=== PATIENT | female | born 2000 | race Caucasian/White ===

== ENCOUNTER → 2021-03-20 08:18 | Outpatient (CLI) | payer OTHER, SELFPAY ==
[2021-03-20 13:24] LABS: COVID19 -Nasal RAPID Negative (Negative)
== END ==
PROVIDERS: PCP Internal Medicine; Visit Provider Nurse Practitioner Family
DX: Z01.812 Encounter for preprocedural laboratory examination (principal); Z20.822 Contact with and (suspected) exposure to COVID-19
CPT/HCPCS: 87635

== ENCOUNTER 2021-03-21 06:31 | Day surgery (SDC) | payer OTHER, SELFPAY ==
[2021-03-19 07:40] VITALS: BMI 29.2
[2021-03-21] VITALS (7 sets, daily range): BP systolic 88–115; BP diastolic 45–79; PULSE 83–103; RESP 10–100; TEMP 36–36.6; O2SAT 98–100; BMI 29.2
[2021-03-21] MEDS: LACTATED RINGERS 1,000 ML 100 ML IV (06:57)
--- NOTE | 2021-03-21 07:18 | P.OP_ITS ---
Operative Date/Time/Diagnoses Date of procedure: 03/21/21 Time of procedure: 08:12 Pre-op diagnosis: Chronic tonsillitis, tonsil stones, throat pain Post-op diagnosis: same Procedure & Clinicians Procedure: Tonsillectomy Same procedure as scheduled: Yes Indications: 20-year-old female with the above diagnoses incompletely managed with medical therapy presents to the above procedure. Following discussion of the material risks benefits complications and alternatives, she elected to proceed. Surgeon: Gokul Juarez Click Yes if Unassisted: Yes Anesthesia Type: General and Local Operative Notes Findings: Intact palate, single uvula, 2 to 3+ tonsils with stones, less cautery required RIGHT, no visible adenoids Estimated Blood Loss (mL): 5 Procedure in detail: Following identification and confirmation of consent the patient was brought to the operating room suite and placed in the supine position. General endotrachea l anesthesia was administered. A head wrap, shoulder roll, and mouth gag were placed and a red rubber catheter was inserted through the nostril and out the mouth to retract the soft palate. There was no visible adenoid tissue. The left tonsil was retracted medially and suction electrocautery on a setting of 30 was used to dissect the tonsil in a subcapsular plane, followed by hemostasis with the same. This process was repeated on the right side with identical findings. The tonsillar fossae were superficially infiltrated bilaterally with a 1:1 mixture of 1% lidocaine 1 100,000 epinephrine and 0.25% Marcaine 1 to 002935 epinephrine. Mouth gag and rubber catheter were removed and the patient was extubated in the operating room and taken to the recovery room in stable condition without known complication. Post-operative Condition: stable Disposition: same day surgery Plan for aftercare: Push fluids, alternate Tylenol and Advil every 3 hours for baseline pain control, oxycodone for breakthrough pain. Soft diet 2 full weeks, no heavy lifting or straining 2 weeks.
--- NOTE | 2021-03-21 07:18 | PM.PREOP ---
Pre-operative Note Interval Note History & Physical reviewed/Exam performed by Physician: Yes Changes to H&P: No
--- NOTE | 2021-03-21 07:56 | SUR.OPER ---
Supine on padded OR bed, head on gel doughnut, arms secured on padded arm boards at <90 degrees abduction, legs uncrossed, safety belt at thigh, tape over blanket over lower legs.
[2021-03-21] MEDS: BUPIVACAINE 0.25% (PF) VIAL 30 ML INJ (08:00)
[2021-03-21] MEDS: LIDOCAINE 1% W/EPI 20 ML INJ (08:00)
[2021-03-21] MEDS: OXYCODONE/ACETAMINOPHEN 5/325 TABLET 1 TAB PO ×2 (08:42→08:59)
== END 2021-03-21 09:33 | disposition home or self-care (01) ==
PROVIDERS: PCP Internal Medicine; Referring Provider Otolaryngology; Visit Provider Otolaryngology
PROC: (CPT 42826; principal; 2021-03-21 07:45)
DX: J35.01 Chronic tonsillitis (principal); K21.9 Gastro-esophageal reflux disease without esophagitis; J35.8 Other chronic diseases of tonsils and adenoids
CPT/HCPCS: 42826; 81025; J0330; J1100; J2405; J2704; J3010

== ENCOUNTER → 2023-09-07 08:43 | Outpatient (CLI) | payer OTHER, SELFPAY ==
--- NOTE | 2023-09-07 | DI.ECHO.S_ITS ---
[place] +---------+ Hospital : : [address] : : [place] : : [id number] : : Phone: [phone] Echocardiogram Report + + :Name: ASHLEY PHILIP Study Date: 09/07/2023 Height: 62 in : :[facility] ReadingLocation: Weight: 190 lb : : Gender: Female BSA: 1.9 m2 : :: 2000 Age: 23 yrs BP: 136/98 mmHg: :Reason For Study: BICUSPID AORTIC VALVE : :Ordering Physician: MYCHAL, : :VON Performed By: Zac Leong : :Referring: VON HORTA : + + Interpretation Summary 1) Normal left ventricular thickness, size, wall motion, and systolic function (EF 55-60%). 2) Normal right ventricular size and function. 3) No significant valvular abnormalities. 4) No prior Echo available for comparison. Procedure: A two-dimensional transthoracic echocardiogram with color flow and Doppler was performed. The study quality was technically adequate. The patient had an echocardiogram, but there is no comparison study available. The patient was in normal sinus rhythm during the exam. The heart rate ranged between 76-91 bpm during the study. Left Ventricle: The left ventricle is normal in size and wall thickness. The ejection fraction is estimated to be 55-60%. Left ventricular systolic function appears normal without focal wall motion abnormalities. Right Ventricle: The right ventricle is normal size. The right ventricular systolic function is normal. Atria: The left atrial size is normal. The right atrium is borderline dilated. The interatrial septum grossly appears intact with no obvious evidence for an atrial septal defect. Mitral Valve: The mitral valve is normal. There is no mitral valve stenosis. There is no mitral regurgitation noted. Aortic Valve: The aortic valve is bicuspid. There is no aortic valve stenosis. No aortic regurgitation is present. Tricuspid Valve: The tricuspid valve is normal. There is no tricuspid stenosis. No tricuspid regurgitation. Pulmonic Valve: The pulmonic valve is not well visualized. There is no pulmonic valvular stenosis. There is no pulmonic valvular regurgitation. Great Vessels: The aortic root is normal size. The ascending aorta could not be visualized. No Doppler or imaging evidence of an aortic coarctation. The IVC is of normal diameter and collapses greater than 50% with a sniff. This suggests a low right atrial pressure of 3 mm Hg. Pericardium/ Pleura There is no pericardial effusion. There is no pleural effusion. MMode/2D Measurements & Calculations LVIDd: 4.3 cm LVOT diam: 1.9 cm LVIDs: 3.1 cm Ao root diam: 2.8 cm FS: 27.4 % asc Aorta Diam: 3.5 cm IVSd: 0.96 cm LVPWd: 0.96 cm LV rm. diameter/BSA (cm/m^2): 2.3 LV sys. diameter/BSA (cm/m^2): 1.7 LA A2 area: 16.2 cm2 RA long axis: 4.9 cm LA A4 area: 15.4 cm2 RA area: 17.6 cm2 LA length (vol): 4.6 cm RA vol: 53.2 ml LA vol: 45.5 ml RA : 28.4 ml/m2 LA vol index: 24.3 ml/m2 RVD1 (basal): 3.6 cm RVD2 (mid): 3.7 cm TAPSE: 2.5 cm Doppler Measurements & Calculations Ao V2 max: 202.8 cm/sec LVOT Max Palmer: 104.5 cm/sec Ao V2 mean: 137.0 cm/sec LV V1 max P.4 mmHg Ao max P.4 mmHg LV V1 VTI: 22.7 cm Ao mean P.6 mmHg VLADIMIR(I,D): 1.6 cm2 Ao V2 VTI: 39.6 cm VLADIMIR(V,D): 1.4 cm2 sev ratio: 0.57 VLADIMIR indexed to BSA (cm^2/m^2): 0.83 MV E max palmer: 80.7 cm/sec PA V2 max: 98.4 cm/sec MV A max palmer: 68.7 cm/sec PA V2 mean: 77.9 cm/sec MV E/A: 1.2 PA mean P.5 mmHg Med Peak E' Palmer: 7.7 cm/sec PA pr(Accel): 29.3 mmHg E/E' med: 10.4 Lat Peak E' Palmer: 14.7 cm/sec E/E' lat: 5.5 E/e' average: 8.0 MV dec time: 0.21 sec SV(LVOT): 61.5 ml Reading Physician:01:28 PM
== END ==
PROVIDERS: PCP Registered Nurse; Referring Provider Internal Medicine Cardiovascular Disease; Visit Provider Internal Medicine Cardiovascular Disease
DX: Q23.1 Congenital insufficiency of aortic valve (principal)
CPT/HCPCS: 93306

== ENCOUNTER 2023-10-20 12:59 | Day surgery (SDC) | payer OTHER, SELFPAY ==
--- NOTE | 2023-10-20 | PATH_ITS ---
[facility] Accession Number: [id number] No. of containers..02 Tissue . 01 Material submitted: . PART A: duodenum - DUODENAL BIOPSIES PART B: gastrointestinal site - ANTRUM BIOPSIES . 01 Diagnosis: Part A: DUODENAL BIOPSIES: Duodenal mucosa with no diagnostic alterations. No active inflammation and no evidence of celiac disease. . Part B: ANTRUM BIOPSIES: Gastric mucosa with mild chronic inflammation. No Helicobacter organisms identified. No intestinal metaplasia, dysplasia, or malignancy identified. [facility] 10/23/2023 132 Local . 01 Electronically signed: . Robi Truong MD, Pathologist NPI- [id number] . 01 Gross description: . Part A: DUODENAL BIOPSIES: Received in formalin are 4 fragment(s) of barbosa, soft tissue measuring 0.1 x 0.1 x 0.1 cm to 0.3 x 0.3 x 0.2 cm submitted entirely in 1 cassette(s) . Part B: ANTRUM BIOPSIES: Received in formalin are 3 fragment(s) of barbosa, soft tissue measuring 0.2 x 0.2 x 0.2 cm to 0.5 x 0.3 x 0.2 cm submitted entirely in 1 cassette(s) /LAUR[facility] 10/23/2023 1321 Local . 01 Microscopic: . Part B: ANTRUM BIOPSIES: An immunohistochemical stain was performed to evaluate for Helicobacter organisms and is negative. The control stains appropriately. * This test was developed and its performance characteristics determined by [facility]. It has not been cleared or approved by the U.S. Food and Drug Administration. The FDA has determined that such clearance or approval is not necessary. This test is used for clinical purposes. It should not be regarded as investigational or for research. . 01 Pathologist provided ICD-10: K29.50 . 01 CPT . 273063, 684423, T01160 Specimen Comment: A courtesy copy of this report has been sent to [phone] Performed at: [address] [id number] MD Robi Truong MD Phone: [phone]
[2023-10-20 13:43] VITALS: BP 128/84; PULSE 84; RESP 16; TEMP 36.4; O2SAT 99
[2023-10-20] MEDS: LACTATED RINGERS 1,000 ML 42 ML IV (14:00)
--- NOTE | 2023-10-20 14:14 | PM.PREOP ---
Pre-operative Note COVID-19 COVID-19 status: Not tested Interval Note History & Physical reviewed/Exam performed by Physician: Yes Changes to H&P: No ASA Class (for procedural sedation): II
[2023-10-20 15:20] VITALS: BP 111/65; PULSE 97; RESP 15; TEMP 36.1; O2SAT 98
[2023-10-20 15:25] VITALS: BP 130/56; PULSE 95; RESP 13; TEMP 36.2; O2SAT 98
--- NOTE | 2023-10-20 15:27 | PM.OP.EGD ---
Operative Date/Time/Diagnoses Date of procedure: 10/20/23 Time of procedure: 15:28 Pre-op diagnosis: Abdominal pain Post-op diagnosis: same Procedure & Clinicians Study performed: Esophagogastroduodenoscopy Same procedure as scheduled: Yes Surgeon: Clement Castro Procedure Notes Procedure in detail: Surgeon: Clement Castro MD Anesthesia: Christ Miles D.O. A timeout was performed. A bite blocked was placed. The patient was positioned in the left lateral decubitus position. Anesthesia was administered. The endoscope was inserted through the bite block and passed through the esophagus and stomach and into the duodenum. The duodenal mucosa appeared normal. Random biopsies were taken with cold forceps. The scope was withdrawn into the duodenal bulb and no other abnormalities were seen. The scope was withdrawn into the stomach. There was mild antritis and random biopsies were taken from the antrum with cold forceps. The rest of the stomach was normal. The scope was retroflexed and a small hiatal hernia was noted. The scope was withdrawn into the esophagus and no other abnormalities were found. The remainder of the esophagus was normal. The scope was withdrawn. The patient was awakened and brought to recovery. Sedation time: See anesthesia record Findings: Mild antritis and a small hiatal hernia Post-procedure Disposition: PACU
[2023-10-20 15:31] VITALS: BP 110/73; PULSE 84; RESP 12; TEMP 36.2; O2SAT 98
== END 2023-10-20 15:39 | disposition home or self-care (01) ==
PROVIDERS: PCP Registered Nurse; Referring Provider Surgery; Visit Provider Surgery
PROC: 0DJ08ZZ Inspection of Upper Intestinal Tract, Via Natural or Artificial Opening Endoscopic (ICD-10-PCS; CPT 43239; principal; 2023-10-20 14:00)
DX: K29.50 Unspecified chronic gastritis without bleeding (principal); K44.9 Diaphragmatic hernia without obstruction or gangrene
CPT/HCPCS: 43239; J2704

== ENCOUNTER 2023-10-28 07:55 | Day surgery (SDC) | payer OTHER, SELFPAY ==
[2023-10-22 15:17] VITALS: BMI 35.4
[2023-10-28] VITALS (10 sets, daily range): BP systolic 99–126; BP diastolic 66–87; PULSE 71–104; RESP 10–19; TEMP 36.2–36.8; O2SAT 95–100; BMI 35.3
--- NOTE | 2023-10-28 | PATH_ITS ---
[facility] Accession Number: [id number] No. of containers..01 Tissue . 01 Material submitted: . gallbladder - GALLBLADDER AND CONTENTS . 01 Diagnosis: GALLBLADDER AND CONTENTS, CHOLECYSTECTOMY: Mild chronic cholecystitis. One benign cystic duct lymph node. No evidence of neoplasm. [facility] 10/30/2023 1126 Local . 01 Electronically signed: . Cipriano Vázquez MD, PhD, Pathologist NPI- [id number] . 01 Gross description: . Received in formalin with two identifiers and gallbladder and contents, is an intact gallbladder 6.0 x 2.7 x 2.3 cm with an unremarkable external surface. The cystic duct margin is inked blue and a barbosa lymph node candidate measures 0.5 cm in greatest dimension. The lumen contains dark green viscous bile with no calculi identified in the lumen or the container. The mucosa is green and velvety with yellow areas of discoloration and no polyps or lesions identified. The renee average 0.2 cm thick and client relations representative sections to include the cystic duct margin, intact lymph node candidate, and full thickness sections are submitted in cassette A1. ([id number]) /SANDRO 10/29/2023 0912 Local . 01 Pathologist provided ICD-10: K80.60 . 01 CPT . 663713 Specimen Comment: A courtesy copy of this report has been sent to [phone] Performed at: [address] [id number] MD Robi Truong MD Phone: [phone]
[2023-10-28] MEDS: LACTATED RINGERS 1,000 ML 42 ML IV (08:38)
[2023-10-28] MEDS: ACETAMINOPHEN 325 MG TABLET 975 MG PO (09:08)
--- NOTE | 2023-10-28 09:43 | PM.PREOP ---
Pre-operative Note COVID-19 COVID-19 status: Not tested Interval Note History & Physical reviewed/Exam performed by Physician: Yes Changes to H&P: No ASA Class (for procedural sedation): II
[2023-10-28] MEDS: CEFAZOLIN 2 GM/100 ML PREMIX 100 ML IV (10:22)
--- NOTE | 2023-10-28 10:29 | SUR.OPER ---
Supine on padded OR bed, head on pillow, safety belt at thigh, left arm padded and tucked at side. Right arm secured on padded arm board <90 degrees abduction. Legs uncrossed. Padded footboard in place. Tape over blanket to secure lower legs.
[2023-10-28] MEDS: BUPIVACAINE 0.5% (PF) 30 ML, EPINEPHrine 0.15 MG INJ (10:35)
--- NOTE | 2023-10-28 11:07 | PM.OP.1 ---
Operative Date/Time/Diagnoses Date of procedure: 10/28/23 Time of procedure: 11:07 Pre-op diagnosis: Biliary dyskinesia Post-op diagnosis: same Procedure & Clinicians Procedure: Laparoscopic cholecystectomy Same procedure as scheduled: Yes Surgeon: Clement Castro Business Resiliency Manager: Louis Roman Anesthesia Type: General Operative Notes Procedure in detail: The patient was given preoperative antibiotics. The patient was brought to the operating room and placed on the table in the supine position. General endotracheal anesthesia was induced. The abdomen was prepped and draped. A time-out was performed. We made a 1 cm infraumbilical incision. We dissected down to the base of the umbilical stalk using cautery. We grasped the umbilical stalk with a Sowmya clamp to elevate the abdominal wall. We scored the fascia in the midline with cautery. We pierced the peritoneum with a Peon clamp. The Anushka port was placed and the abdomen was insufflated to 15 mmHg. A 5 mm 30 degree laparoscopic was inserted. There was no evidence of any injury from the entry. Next, we placed 5 mm ports in the subxiphoid position and right upper quadrant at the midclavicular line and anterior axillary line. The patient was then positioned in reverse Trendelenburg and the table was tilted to the left. The gallbladder was grasped at the dome and retracted cephalad. Were some adhesions in the duodenum in the anterior wall of the gallbladder that were carefully taken down with hook cautery. We then dissected the cystic structures with a combination of hook cautery and blunt dissection. We obtained a critical view. We placed clips on the cystic duct and artery and divided the cystic duct and artery sharply between the clips. The gallbladder was then dissected off the liver and placed in a specimen retrieval bag. We irrigated the right upper quadrant and all the aspirate returned clear. We then removed the 5 mm ports under direct vision we removed the Anushka port. We then injected some local into the fascia and closed the fascia with 2 interrupted 0 Vicryl sutures. The skin incisions were closed with 4-0 Monocryl and Steri-Strips were applied. Band-Aids were applied over the Steri-Strips. EBL: 10 mL Specimen: Gallbladder and contents Louis BONDS provided assistance with exposure, retraction and closure of incisions. Post-operative Condition: stable Disposition: PACU
[2023-10-28] MEDS: METOCLOPRAMIDE 10 MG/2 ML INJ IV (11:42)
[2023-10-28] MEDS: ONDANSETRON 4 MG/2 ML INJ IV (11:42)
[2023-10-28] MEDS: hydrOXYzine 50 MG/ML INJ IM (11:42)
[2023-10-28] MEDS: HYDROMORPHONE 1 MG INJ IV (12:00)
[2023-10-28] MEDS: OXYCODONE IR 5 MG TABLET PO (12:21)
== END 2023-10-28 13:07 | disposition home or self-care (01) ==
PROVIDERS: PCP Registered Nurse; Referring Provider Surgery; Visit Provider Surgery
PROC: 0FT44ZZ Resection of Gallbladder, Percutaneous Endoscopic Approach (ICD-10-PCS; CPT 47562; principal; 2023-10-28 10:00)
DX: K82.8 Other specified diseases of gallbladder (principal); K81.1 Chronic cholecystitis
CPT/HCPCS: 47562; 81025; J0171; J0690; J1100; J1170; J1885; J2250; J2405; J2704; J2765; J3010; J3410; J3490